=== PATIENT | male | born 1955 | race Caucasian/White ===

== ENCOUNTER → 2016-12-02 10:34 | Outpatient (CLI) | payer OTHER ==
[~2016-12-02 10:34] MED LIST: FLUTICASONE PRO16 GM NASAL; PROAIR HFA8.5 GM INH; SINGULAIR10 MG PO; SYMBICORT 16010.2 GM INH
== END | disposition home or self-care (01) ==
LOC: D.RT 10:34
DX: J45.991 Cough variant asthma (principal)

== ENCOUNTER 2016-12-21 15:11 | Observation (INO) | payer OTHER ==
--- NOTE | ~2016-12-21 | HEMODYNAMI ---
PATIENT:MICHAEL CORTES MEDICAL RECORD: [id number] : 55 LOCATION:[address] ADMISSION DATE: 12/21/16 Generatedon:12/22/201615:18 Patient name: MICHAEL CORTES Patient #: [id number] SSN: : Date of study: 12/22/2016 Page: Of Hemodynamic Procedure Report Patient Data Patient Demographics Procedure consent was obtained First Name: MICHAEL Gender: Male Last Name: SOPHIA : 1955 [facility] Initial: NICHOLAS Age: 61 year(s) Patient #: [id number] Race: Unknown Additional ID: [id number] Contact details Address: [place] [address] State: [place] City: [place] Zip code: [address] Past Medical History Allergies Allergen Reaction Date Comments Reported Other allergy 12/22/2016 ASA, LEVAQUIN Admission Admission Data Admission Date: 12/21/2016 Admission Time: 20:02 Room #: [facility] Lab Results Lab Result Date: 12/22/2016 Lab Result Time: 4:08 Biochemistry Name Units Result Min Max BUN mg/dl 15 --(--*-)-- 7 18 Creatinine mg/dl 1.1 --(--*-)-- 0.6 1.3 CBC Name Units Result Min Max Hematocrit % 44.7 --(*---)-- 42 54 Hemoglobin g/dl 15.3 --(-*--)-- 13.5 17.5 Procedure Procedure Types Cath Procedure Diagnostic Procedure LHC LHC w/Coronaries Miscellaneous Procedures Moderate Sedation up to 15 minutes Procedure Description Procedure Date Procedure Date: 12/22/2016 Procedure Start Time: 15:05 Procedure End Time: 15:17 Procedure Staff Name Function Jhoan Churchill MD Performing Physician Oliva Baptiste RT Scrub Ceasar Mendoza RN Nurse Robin Tipton RT Monitor Procedure Data Cath Procedure Fluoroscopy Diagnostic fluoroscopy Total fluoroscopy Time: 2.2 time: 2.2 min min Diagnostic fluoroscopy Total fluoroscopy dose: 402 dose: 402 mGy mGy Contrast Material Contrast Material Type Amount (ml) Isovue 300 61 Entry Location Entry Primary Successful Side Size Upsize Upsize Entry Closure Montilla ccessful Closure Location (Fr) 1 (Fr) 2 (Fr) Remarks Device Remarks Radial Right 6 Fr Mechanical artery Short Compression Estimated blood loss: 5 ml Diagnostic catheters Device Type Used For End Catheter Placement Terumo 5Fr Britton 110cm Procedure catheter Procedure Complications No complications Procedure Medications Medication Administration Route Dosage Oxygen NC 2 l/min Lidocaine 2% added to field 20 Heparin Flush Bag added to field 2 bags (1000units/500ml NS) 0.9% NaCl I.V. 100 ml/hr Radial Cocktail added to field 1 syringe (Verapomil 2mg/Nitro 400mcg/Heparin 1500units) Versed I.V. 1 mg Fentanyl I.V. 100 mcg Radial Cocktail I.A. 1 syringe (Verapomil 2mg/Nitro 400mcg/Heparin 1500units) Versed I.V. 1 mg Fentanyl I.V. 50 mcg Versed I.V. 1 mg Fentanyl I.V. 50 mcg Hemodynamics Rest HGB: 15.3 (g/dl) Heart Rate: 98 (bpm) Pressure Samples Time Site Value (mmHg) Purpose Heart Use Rate(bpm) 15:08 LV 147/-5,15 EDP 54 Gradients Valve Time Site Site Mean SEP/DFP Peak To Heart Use 1 2 (mmHg) (sec/min) Peak Rate (mmHg) (bpm) Aortic 15:09 LV AO 69 Snapshots Pre Cath Intra NCS Post Cath Vital Signs Time Heart Resp SPO2 etCO2 NIBP (mmHg) Rhythm Pain Sedation Rate (ipm) (%) (mmHg) Status Level (bpm) 14:59:56 95 17 99 35.3 143/99(121) NSR 0 (11) 10(A) , No pain 15:04:11 94 15 99 36.1 134/85(119) NSR 0 (11) 10(A) , No pain 15:08:16 109 15 98 39.1 134/86(102) NSR 0 (11) 10(A) , No pain 15:12:26 101 16 96 22.5 122/68(85) NSR 0 (11) 9(A) , No pain 15:16:34 108 16 98 42.8 105/72(92) NSR 0 (11) 10(A) , No pain Medications Time Medication Route Dose Verified Delivered Reason Notes Effectiveness by by 14:58:20 Oxygen NC 2 l/min Jhoan Buffie used for Zhao Mendoza RN procedure 14:58:27 Lidocaine 2% added 20ml Jhoan Jhoan for local to vial Zhao Churchill MD anesthetic field 14:58:33 Heparin Flush added 2 bags Jhoan Jhoan used for Bag to Zhao Churchill MD procedure (1000units/500ml field NS) 14:58:41 0.9% NaCl I.V. 100 Jhoan Buffie Per ml/hr Zhao Mendoza RN physician 14:58:49 Radial Cocktail added 1 Jhoan Jhoan for (Verapomil to syringe Zhao Churchill MD vasodilation 2mg/Nitro field 400mcg/Heparin 1500units) 15:05:25 Versed I.V. 1 mg Jhoan Buffie for sedation Zhao Mendoza RN 15:05:30 Fentanyl I.V. 100 mcg Jhoan Buffie for sedation Zhao Mendoza RN 15:07:25 Radial Cocktail I.A. 1 Jhoan Jhoan for (Verapomil syringe Zhao Churchill MD vasodilation 2mg/Nitro 400mcg/Heparin 1500units) 15:07:30 Versed I.V. 1 mg Jhoan Buffie for sedation Zhao Mendoza RN 15:07:33 Fentanyl I.V. 50 mcg Jhoan Buffie for sedation Zhao Mendoza RN 15:12:45 Versed I.V. 1 mg Jhoan Buffie for sedation Zhao Mendoza RN 15:12:49 Fentanyl I.V. 50 mcg Jhoan Buffie for sedation Zhao Mendoza RN Procedure Log Time Note 14:20:39 Oliva Baptiste RT(R) sent for patient. Start room use. 14:34:00 Diagnostic Cath Status : Elective 14:42:45 Time tracking: Regular hours 14:42:50 Patient received from Med II to CCL 2 Alert and oriented. Tansferred to table in Supine position. 14:42:51 Warm blankets applied, and tiffanie hugger turned on for patient comfort. 14:42:51 Correct patient and procedure confirmed by team. 14:42:52 Signed procedure consent form obtained from patient. 14:42:53 ECG and BP/O2 sat monitors applied to patient. 14:43:04 H&P Date Dictated: 12/21/2016 Within 30 days and on chart.. 14:43:07 Pre-procedure instructions explained to patient. 14:43:07 Pre-op teaching completed and patient verbalized understanding. 14:43:12 Family in waiting room. 14:43:13 Patient NPO since Midnight. 14:58:20 Oxygen 2 l/min NC was administered by Ceasar Mendoza RN; used for procedure; 14:58:27 Lidocaine 2% 20ml vial added to field was administered by Jhoan Churchill MD; for local anesthetic; 14:58:33 Heparin Flush Bag (1000units/500ml NS) 2 bags added to field was administered by Jhoan Churchill MD; used for procedure; 14:58:41 0.9% NaCl 100 ml/hr I.V. was administered by Ceasar Mendoza RN; Per physician; 14:58:49 Radial Cocktail (Verapomil 2mg/Nitro 400mcg/Heparin 1500units) 1 syringe added to field was administered by Jhoan Churchill MD; for vasodilation; 14:58:54 Vital chart was started 15:03:02 Patient allergic to Other allergyASA, LEVAQUIN 15:03:12 Is the patient allergic to Iodine/contrast media? No. 15:03:13 Is patient on blood thinner?No 15:03:15 Patient diabetic? No. 15:03:18 Previous problem with sedation/anesthesia? No ? 15:03:19 Snore? Yes 15:03:20 Sleep apnea? No 15:03:21 Deviated septum? No 15:03:21 Opens mouth fully? Yes 15:03:22 Sticks out tongue? Yes 15:03:28 Airway obstruction? Yes ASTHMA 15:03:31 Dentures? No ? 15:03:33 Modified Best's test Ulnar < 7 seconds 15:03:36 Patient pain scale 0/10 ?. 15:03:40 IV patent on arrival in right hand with 0.9% NaCl at [facility]. 15:03:43 Lab results completed and on chart. 15:03:46 Right Radial & Right Groin area was prepped with chlora-prep and draped in sterile fashion 15:03:47 Alarms reviewed by REarl N. 15:03:47 Sharps counted by scrub and verified by R.N. 15:03:50 Use device set Radial Dx 15:03:50 MBrace Wrist Support opened to sterile field. 15:03:51 Acist Syringe opened to sterile field. 15:03:54 Medline Cath Pack opened to sterile field. 15:03:54 Bag Decanter opened to sterile field. 15:03:55 Terumo 6Fr Slender Glidesheath opened to sterile field. 15:03:55 St Alex 260cm J .035 wire opened to sterile field. 15:03:55 Acist Hand Control opened to sterile field. 15:03:56 Acist Manifold opened to sterile field. 15:03:56 Tegaderm 4 x 4 opened to sterile field. 15:04:01 Physician arrived 15:04:01 --------ALL STOP TIME OUT------ 15:04:02 Final Timeout: patient, procedure, and site verified with staff and physician. All members of the team are in agreement. 15:04:03 Right Radial & Right Groin site verified by team. 15:04:06 Physical assessment completed. ASA score P 2 - A patient with mild systemic disease as per Jhoan Churchill MD. 15:04:08 Sedation plan: IV Moderate Sedation Versed, Fentanyl 15:04:23 Cook 21G 4cm Radial Needle opened to sterile field. 15:04:33 Procedure started. 15:04:33 Full Disclosure recording started 15:04:46 A 6 Fr Short sheath was inserted into the Right Radial artery 15:05:25 Versed 1 mg I.V. was administered by Ceasar Mendoza RN; for sedation; 15:05:30 Fentanyl 100 mcg I.V. was administered by Ceasar Mendoza RN; for sedation; 15:05:40 Local anesthetic to right radial artery with Lidocaine 2% by Jhoan Churchill MD.INITIAL ACCESS ONLY 15:07:17 Zero performed for pressure channel P1 15:07:20 Zero performed for pressure channel P1 15:07:22 Zero performed for pressure channel P1 15:07:25 Radial Cocktail (Verapomil 2mg/Nitro 400mcg/Heparin 1500units) 1 syringe I.A. was administered by Jhoan Churchill MD; for vasodilation; 15:07:29 Baseline sample Acquired. 15:07:30 Versed 1 mg I.V. was administered by Buffie Mendoza RN; for sedation; 15:07:32 Rhythm: sinus tachycardia 15::33 Fentanyl 50 mcg I.V. was administered by Ceasar Mendoza RN; for sedation; 15::55 A Terumo 5Fr Britton 110cm catheter was advanced over the wire and used for Procedure. 15::55 LV hemodynamics recorded. 15:09:03 LV gram done using CHRIS 15::07 Injector settings: Ml/sec: 5, Volume: 15, 15:09:13 EF : 55 % 15:: Lab Result : Hemoglobin 15.3 g/dl :: Lab Result : Creatinine 1.1 mg/dl :: Lab Result : BUN 15 mg/dl : Lab Result : Hematocrit 44.7 % 15:10:46 RCA angiography performed. 15:11:09 LCA angiography performed. 15:12:20 Catheter removed. 15:12:24 Terumo TR Band Standard opened to sterile field. 15:12:31 Sheath removed intact; hemostasis achieved with Mechanical Compression to the Right Radial artery. 15:12:33 Procedure ended.(Physican Out) 15:12:45 Versed 1 mg I.V. was administered by Ceasar Mendoza RN; for sedation; 15:12:49 Fentanyl 50 mcg I.V. was administered by Ceasar Mendoza RN; for sedation; 15:14:00 Fluoroscopy time 02.20 minutes. 15:14:04 Fluoroscopy dose: 402 mGy 15:14:04 Flurop Dose total: 402 15:14:53 Contrast amount:Isovue 300 61ml. 15:14:57 Sharps counted by scrub and verified by R.N. 15:15:01 TR band inflated with 10cc of air. 15:15:03 Insertion/operative site no bleeding no hematoma. 15:15:06 Post Procedure Pulses reassessed and unchanged 15:15:08 Post-procedure physical assessment completed. ASA score P 2 - A patient with mild systemic disease as per Jhoan Churchill MD. 15:15:10 Post procedure rhythm: unchanged. 15:15:15 Estimated blood loss: 5 ml 15:15:16 Post procedure instruction explained to patient.Patient verbalizes understanding. 15:15:16 Patient needs reinforcement of post procedure teaching. 15:15:31 Procedure type changed to Cath procedure, Diagnostic procedure, LHC, LHC w/Coronaries, Miscellaneous Procedures, Moderate Sedation up to 15 minutes 15:16:19 Procedure and supply charges have been captured, reviewed, submitted and are correct. 15:16:22 Procedure Complication : No complications 15:16:47 Vital chart was stopped 15:16:51 See physician's report for complete and final results. 15:16:56 Report given to PCU. 15:16:59 Patient transfered to PCU with Stretcher. 15:17:02 Procedure ended. 15:17:02 Full Disclosure recording stopped 15:17:08 End room use (Document Last) Device Usage Item Name Manufacture Quantity Catalog Hospital Part Current Minimal Lot# / Number Charge Number Stock Stock Serial# Code [facility] 1 140-0250-00 180918 82688 [id number] 5 Wrist Vascular Support Dynamics Acist Acist 1 38431 071946 515943 455826 20 Syringe [employer] Inc Medline Cardinal 1 [id number] 837454 64706 612160 5 Cath Pack Health Bag Microtek 1 2002S 882413 45359 721854 5 [employer] Terumo 6Fr Terumo 1 [id number] 515504 541703 352920 [address] [facility] Alex 1 [id number] 829867 407237 572704 30 260cm J .035 wire Acist Hand Acist 1 60798 008957 128734 730114 5 Control [employer] Inc Acist Acist 1 76227 731441 467275 453335 5 Manifold [employer] Inc Tegaderm 4 3M 1 1626W 573380 174311 936852 5 x 4 Cook 21G Cook Medical 1 [id number] 412589 840112 075139 5 4cm Radial Needle Terumo 5Fr Terumo 1 77-8131 009401 273392 716564 5 Britton 110cm catheter Terumo TR Terumo 1 [id number] 935538 709926 091438 40 Band Standard Signature Audit [facility] Time Signature Unsigned Intra-Procedure 12/22/2016 Robin Tipton 3:17:57 PM RT(R) Signatures Monitor : Robin Tipton RT Signature : Date : Time : [place] [address] [place] [address]
[2016-12-21 16:12] LABS: BASOPHILS 0.4 % (0-2); EOSINOPHILS 0.9 % (0-7); HEMATOCRIT 44.7 % (42.0-54.0); HEMOGLOBIN 15.3 g/dL (13.5-17.5); IMMATURE GRANULOCYTES 0.1 % (0-5); LYMPHOCYTES 15.3 % (15-50); MCH 30.2 pg (26.0-34.0); MCHC 34.2 g/dL (31.0-37.0); MCV 88.3 fL (80.0-100.0); MEAN PLATELET VOLUME 9.4 fL (7.4-10.4); MONOCYTES 9.7 % (2-11); NEUTROPHILS 73.6 % (40-80); PLATELET COUNT 181 10x3/uL (130-400); RBC 5.06 10x6/uL (4.20-6.10); WBC 7.9 10x3/uL (4.8-10.8)
[2016-12-21 17:04] LABS: ALBUMIN 3.8 g/dL (3.4-5.0); ALKALINE PHOSPHATASE 71 U/L (46-116); ALT (SGPT) 25 U/L (10-68); CALC OSMOLALITY 281 mosm/kg (275-300); CALCIUM 9.2 mg/dL (8.5-10.1); CARBON DIOXIDE 26.9 mmol/L (21.0-32.0); CHLORIDE - SERUM 104 mmol/L (98-107); CREATININE - SERUM 1.1 mg/dL (0.6-1.3); GLUCOSE 91 mg/dL (74-106); POTASSIUM - SERUM 4.1 mmol/L (3.5-5.1); PROTEIN - SERUM 7.2 g/dL (6.4-8.2); SODIUM 141 mmol/L (136-145); UREA NITROGEN 15 mg/dL (7-18); eGFR NON AFRICAN AMERICAN 72 mL/min (90-120)
[2016-12-21 17:18] LABS: CHOL - HDL RATIO 4.4 ratio (2.3-4.9); CHOLESTEROL, TOTAL 231 mg/dL (0-200); CKMB 0.5 U/L (0.0-3.6); CREATINE KINASE 88 UL (21-232); HDL CHOLESTEROL 52 mg/dL (32-96); LDL CHOLESTEROL 164 mg/dL (0-100); LDL-HDL RATIO 3.2 ratio (1.5-3.5); TRIGLYCERIDE 75 mg/dL (30-200); TROPONIN-I < 0.017 ng/mL (0.000-0.060)
[2016-12-21 20:05] LABS: CKMB 0.8 U/L (0.0-3.6); CREATINE KINASE 93 UL (21-232)
[2016-12-21 20:07] LABS: TROPONIN-I < 0.017 ng/mL (0.000-0.060)
[2016-12-21] MEDS ORDERED: SINGULAIR10 MG PO (22:31)
[2016-12-21] MEDS ORDERED: FLUTICASONE PRO16 GM NASAL (22:35)
[2016-12-21] MEDS ORDERED: PROAIR HFA8.5 GM INH (22:36)
[2016-12-21] MEDS ORDERED: SYMBICORT 16010.2 GM INH (22:36)
[2016-12-21 22:37] VITALS: BP 148/81; BMI 26.0
[2016-12-22] VITALS: BP 111/67
--- NOTE | 2016-12-22 01:59 | NUR ---
PT RESTING SOUNDLY WITHOUT C/O OR DISTRESS NOTED. CALL LIGHT WITHIN REACH. WILL MONITOR.
[2016-12-22 02:02] LABS: CKMB 0.5 U/L (0.0-3.6); CREATINE KINASE 69 UL (21-232); TROPONIN-I < 0.017 ng/mL (0.000-0.060)
[2016-12-22 04:00] VITALS: BP 136/74
[2016-12-22 07:13] VITALS: BP 139/82
--- NOTE | 2016-12-22 08:10 | NUR ---
CONSENTS SIGNED FOR HEART CATH. NPO POST BREAKFAST. MONITOR SHOWS NSR @ 91
[2016-12-22 08:28] LABS: BASOPHILS 0.4 % (0-2); EOSINOPHILS 1.2 % (0-7); HEMATOCRIT 47.2 % (42.0-54.0); HEMOGLOBIN 16.1 g/dL (13.5-17.5); IMMATURE GRANULOCYTES 0.1 % (0-5); LYMPHOCYTES 16.9 % (15-50); MCH 30.3 pg (26.0-34.0); MCHC 34.1 g/dL (31.0-37.0); MCV 88.7 fL (80.0-100.0); MEAN PLATELET VOLUME 9.4 fL (7.4-10.4); MONOCYTES 8.9 % (2-11); NEUTROPHILS 72.5 % (40-80); PLATELET COUNT 196 10x3/uL (130-400); RBC 5.32 10x6/uL (4.20-6.10); WBC 7.3 10x3/uL (4.8-10.8)
[2016-12-22 09:04] LABS: CALC OSMOLALITY 281 mosm/kg (275-300); CALCIUM 9.5 mg/dL (8.5-10.1); CARBON DIOXIDE 24.6 mmol/L (21.0-32.0); CHLORIDE - SERUM 105 mmol/L (98-107); CKMB 0.7 U/L (0.0-3.6); CREATINE KINASE 89 UL (21-232); GLUCOSE 93 mg/dL (74-106); POTASSIUM - SERUM 4.3 mmol/L (3.5-5.1); SODIUM 141 mmol/L (136-145); TROPONIN-I < 0.017 ng/mL (0.000-0.060); UREA NITROGEN 15 mg/dL (7-18); eGFR NON AFRICAN AMERICAN 81 mL/min (90-120)
[2016-12-22 12:57] VITALS: BP 119/77
--- NOTE | 2016-12-22 14:35 | NUR ---
PREOP FOR CATH.
[2016-12-22 16:00] VITALS: BP 106/59
--- NOTE | 2016-12-22 18:28 | NUR ---
OVER THE PAST HOUR, AIR HAS BEEN RELEASED FROM TR BAND. NO BLEEDING NOR EDEMA NOTED.
--- NOTE | 2016-12-22 19:30 | NUR ---
ASSESSMENT COMPLETE. S1S2. RR CLEAR EQUAL UNLABORED. PERRLA. AAO. UP AD MAULIK. BOWEL SOUNDS ACTIVE. TR BAND TO RIGHT WRIST. RADIAL AND PEDAL PULSE BOUNDING. QUESTIONS ANSWERED ABOUT DISCHARGE. AT BEDSIDE.
[2016-12-22 20:00] VITALS: BP 93/53
--- NOTE | 2016-12-22 23:00 | NUR ---
PT DISCHARGED BY WHEEL CHAIR. DISCHARGED WITH ; DRIVING. PAPERWORK SIGNED AND WENT OVER DISCHARGE INSTRUCTIONS. NO QUESTIONS; NO CONCERNS VOICED AT THIS TIME.
== END 2016-12-22 23:00 | disposition home or self-care (01) ==
LOC: D.ER 15:11 → D.M2 20:02 → OBSVTIME 20:02 → D.M2 20:02
PROVIDERS: Family Medicine; ADMIT Internal Medicine Cardiovascular Disease
DX: R07.89 Other chest pain (principal); I10 Essential (primary) hypertension

== ENCOUNTER → 2017-06-22 09:53 | Outpatient (CLI) | payer BC | END | disposition home or self-care (01) | LOC: D.RAD 09:53 | DX: N20.0 Calculus of kidney (principal) ==

== ENCOUNTER → 2018-11-16 08:33 | Outpatient (CLI) | payer BC | END | disposition home or self-care (01) | LOC: D.RT 08:33 | PROVIDERS: ATTEND Internal Medicine Pulmonary Disease | DX: J44.9 Chronic obstructive pulmonary disease, unspecified (principal) ==

== ENCOUNTER → 2019-04-17 09:24 | Outpatient (CLI) | payer BC | END | disposition home or self-care (01) | LOC: D.CT 09:24 | PROVIDERS: ATTEND Internal Medicine Pulmonary Disease | DX: J42 Unspecified chronic bronchitis (principal) ==

== ENCOUNTER → 2020-06-12 09:47 | Outpatient (CLI) | payer MEDICARE, BC | END | disposition home or self-care (01) | LOC: D.LAB 09:47 | PROVIDERS: ATTEND Internal Medicine Pulmonary Disease | DX: J45.990 Exercise induced bronchospasm (principal) ==

== ENCOUNTER → 2020-06-17 12:51 | Outpatient (CLI) | payer MEDICARE, BC | END | disposition home or self-care (01) | LOC: D.RT 03-22 09:00 | PROVIDERS: ATTEND Internal Medicine Pulmonary Disease | DX: J45.990 Exercise induced bronchospasm (principal) ==